=== PATIENT | female | born 1990 | race Two or more races ===

== ENCOUNTER 2018-10-30 11:59 | Outpatient (CLI) | payer OTHER | END 2018-10-30 12:10 | disposition home or self-care (01) | LOC: RAD 11:59 | DX: M54.2 Cervicalgia (principal); M62.838 Other muscle spasm ==

== ENCOUNTER 2019-05-23 07:52 | Outpatient (CLI) | payer OTHER | END 2019-05-23 08:02 | disposition home or self-care (01) | LOC: LAB 07:52 | DX: M25.50 Pain in unspecified joint (principal); R53.81 Other malaise; Z13.6 Encounter for screening for cardiovascular disorders; Z00.00 Encounter for general adult medical examination without abnormal findings ==

== ENCOUNTER 2019-09-20 18:32 | Outpatient (CLI) | payer OTHER | END 2019-09-20 19:26 | disposition home or self-care (01) | LOC: LAB 18:32 | DX: J11.1 Influenza due to unidentified influenza virus with other respiratory manifestations (principal); R10.84 Generalized abdominal pain ==

== ENCOUNTER 2019-12-17 11:28 | Outpatient (CLI) | payer OTHER | END 2019-12-17 16:19 | disposition home or self-care (01) | LOC: SONOGRAMA 11:28 | DX: R42 Dizziness and giddiness (principal) ==

== ENCOUNTER 2019-12-18 07:15 | Outpatient (CLI) | payer OTHER | END 2019-12-18 07:23 | disposition home or self-care (01) | LOC: LAB 07:15 | DX: R42 Dizziness and giddiness (principal); R22.1 Localized swelling, mass and lump, neck; Z00.00 Encounter for general adult medical examination without abnormal findings; Z13.6 Encounter for screening for cardiovascular disorders ==

== ENCOUNTER → 2020-05-02 | Outpatient (CLI) | payer OTHER | END | disposition home or self-care (01) | LOC: MAMO-SONO 08:02 | PROVIDERS: ATTEND Colon & Rectal Surgery | DX: R10.84 Generalized abdominal pain (principal) ==

== ENCOUNTER 2020-07-01 16:02 | Outpatient (CLI) | payer OTHER | END 2020-07-01 16:04 | disposition home or self-care (01) | LOC: PPH VACUNA 16:02 | DX: Z23 Encounter for immunization (principal) ==

== ENCOUNTER → 2020-08-26 | Outpatient (CLI) | payer OTHER | END | disposition home or self-care (01) | LOC: OFIC 805 12:48 | PROVIDERS: ATTEND Otolaryngology | DX: R07.0 Pain in throat (principal); J03.80 Acute tonsillitis due to other specified organisms ==

== ENCOUNTER 2020-09-10 10:09 | Outpatient (CLI) | payer OTHER | END 2020-09-10 10:30 | disposition home or self-care (01) | LOC: OFIC 805 10:09 | PROVIDERS: ATTEND Otolaryngology | DX: J03.80 Acute tonsillitis due to other specified organisms (principal); R07.0 Pain in throat; R23.3 Spontaneous ecchymoses ==

== ENCOUNTER 2020-11-20 15:34 | Outpatient (CLI) | payer OTHER | END 2020-11-20 15:43 | disposition home or self-care (01) | LOC: RAD 15:34 | PROVIDERS: ATTEND Pediatrics | DX: Z02.79 Encounter for issue of other medical certificate (principal) ==

== ENCOUNTER 2021-06-15 08:00 | Outpatient (CLI) | payer OTHER | END 2021-06-15 08:30 | disposition home or self-care (01) | LOC: PPH VACUNA 08:00 | PROVIDERS: ATTEND Emergency Medicine Pediatric Emergency Medicine | DX: Z23 Encounter for immunization (principal) ==

== ENCOUNTER 2022-02-15 09:49 | Emergency (ER) | payer OTHER ==
[~2022-02-15] VITALS: Ht 154.9 cm; Wt 49.9 kg
[2022-02-15] MEDS ORDERED: ANTICONCEPTIVOS (10:13)
[2022-02-15] MEDS ORDERED: CIPRO500 MG PO (14:26)
== END 2022-02-15 15:17 | disposition home or self-care (01) ==
LOC: ER 09:49
DX: N39.0 Urinary tract infection, site not specified (principal); R11.10 Vomiting, unspecified; R53.81 Other malaise; R42 Dizziness and giddiness; Z20.822 Contact with and (suspected) exposure to COVID-19; Z88.0 Allergy status to penicillin; Z91.018 Allergy to other foods

== ENCOUNTER 2022-05-19 10:16 | Outpatient (CLI) | payer OTHER ==
[~2022-05-19 10:16] MED LIST: ANTICONCEPTIVOS; CIPRO500 MG PO
== END 2022-05-19 10:21 | disposition home or self-care (01) ==
LOC: PPH VACUNA 10:16
PROVIDERS: ATTEND Emergency Medicine Pediatric Emergency Medicine
DX: Z23 Encounter for immunization (principal)

== ENCOUNTER 2022-06-22 02:57 | Emergency (ER) | payer OTHER ==
[~2022-06-22] VITALS: Ht 154.9 cm; Wt 50.8 kg
[2022-06-22] MEDS ORDERED: PEPCID AC20 MG PO (07:47)
[2022-06-22] MEDS ORDERED: DICLOFENAC POTA50 MG PO (07:47)
[2022-06-22] MEDS ORDERED: AZITHROMYCIN500 MG PO (07:47)
== END 2022-06-22 07:59 | disposition home or self-care (01) ==
LOC: ER 02:57
DX: A49.3 Mycoplasma infection, unspecified site (principal); J06.9 Acute upper respiratory infection, unspecified; Z20.822 Contact with and (suspected) exposure to COVID-19; Z88.0 Allergy status to penicillin

== ENCOUNTER 2024-07-05 22:55 | Emergency (ER) | payer OTHER ==
[~2024-07-05] VITALS: Ht 154.9 cm; Wt 59.0 kg
[~2024-07-05 22:55] MED LIST changes: +AZITHROMYCIN500 MG PO; +DICLOFENAC POTA50 MG PO; +PEPCID AC20 MG PO
[2024-07-06] MEDS ORDERED: CLINDAMYCIN PHOSPHATE 150 MG/ML (600mg) IM STA (01:07)
[2024-07-06] MEDS ORDERED: HYDROCODONE/CHLORPHEN P-STIREX 5 ML ML PO STA (01:07)
[2024-07-06] MEDS ORDERED: MEDROLPACK PO (15:14)
[2024-07-06] MEDS ORDERED: PEPCID AC20 MG PO (15:14)
[2024-07-06] MEDS ORDERED: MIRALAX510 GM PO (15:14)
[2024-07-06] MEDS ORDERED: ZOFRAN8 MG PO (15:14)
== END 2024-07-06 01:24 | disposition home or self-care (01) ==
LOC: ER 22:57
DX: R53.81 Other malaise (principal); J03.90 Acute tonsillitis, unspecified; Z88.0 Allergy status to penicillin; Z91.018 Allergy to other foods

== ENCOUNTER 2024-07-06 07:25 | Emergency (ER) | payer OTHER ==
[~2024-07-06] VITALS: Ht 157.5 cm; Wt 59.0 kg
[2024-07-06] MEDS ORDERED: RINGERS SOLUTION,LACTATED 500 ML IV STA (07:38)
[2024-07-06] MEDS ORDERED: FAMOtidine 10 MG/ML (4ML VIAL) IV PUSH STA (07:39)
[2024-07-06] MEDS ORDERED: METOCLOPRAMIDE HCL 5 MG/ML VIAL IM STA (07:40)
[2024-07-06] MEDS ORDERED: HYOSCYAMINE SULFATE 0.125 MG TAB.SUBL SL ONE (07:45)
[2024-07-06 08:58] LABS: HEMATOCRIT 39.2 % (36.0-45.00); HEMOGLOBIN 12.9 g/dL (12.0-15.00); MEAN CELL VOLUME 80.3 fL (80.00-100.00); MEAN CORPUSCULAR HEMOGLOBIN 26.4 pg (27.00-32.0); MEAN CORPUSCULAR HGB CONC 32.9 g/dl (32.0-36.0); PLATELET COUNT 252 K/uL (150-450); RED BLOOD COUNT 4.88 M/uL (4.00-6.00); RED CELL DISTRIBUTION WIDTH 13.5 % (11.5-14.5)
[2024-07-06 09:24] LABS: ALBUMIN 3.6 gm/dL (3.4-5.0); BILIRUBIN TOTAL 0.38 mg/dL (0.3-1.2); CALCIUM 8.7 mg/dL (8.5-10.1); CREATININE SERUM 0.73 mg/dL (0.55-1.02); GFR 92.99; POTASSIUM 3.1 mEq/L (3.5-5.1); TOTAL PROTEIN 7.6 gm/dL (6.4-8.2)
[2024-07-06 09:26] LABS: URINE APPEARANCE Clear; URINE BILIRRUBIN Negative (NEGATIVE); URINE BLOOD Trace; URINE COLOR Yellow; URINE GLUCOSE Negative (NEGATIVE); URINE KETONE Negative (NEGATIVE); URINE LEUKOCYTE Negative; URINE NITRATE Negative; URINE PROTEIN Negative (NEGATIVE); URINE UROBILINOGEN 0.2 E.U./dl
[2024-07-06 09:30] LABS: URINE CAST 1.67 uL (0.0-1.40); URINE EPITHELIAL CELLS 41.7 uL (0.0-38.8); URINE RBC 9.7 uL (0.0-20.8); URINE WBC 74.3 uL (0.0-23.2)
[2024-07-06] MEDS ORDERED: LACTULOSE 20 G/30 ML BLIST.PACK PO ONE ×2 (11:30)
[2024-07-06] MEDS ORDERED: MAGNESIUM HYDROXIDE 400 MG/5 ML ML PO ONE (11:30)
[2024-07-06] MEDS ORDERED: MINERAL OIL 30 ML BLIST.PACK PO ONE (11:30)
[2024-07-06] MEDS ORDERED: ONDANSETRON HCL 2 MG/ML VIAL IV ONE (14:45)
[2024-07-06] MEDS ORDERED: PEPCID AC20 MG PO (15:14)
[2024-07-06] MEDS ORDERED: ZOFRAN8 MG PO (15:14)
[2024-07-06] MEDS ORDERED: MIRALAX510 GM PO (15:14)
[2024-07-06] MEDS ORDERED: MEDROLPACK PO (15:14)
== END 2024-07-06 15:19 | disposition home or self-care (01) ==
LOC: ER 07:27
DX: R11.10 Vomiting, unspecified (principal); Z20.822 Contact with and (suspected) exposure to COVID-19; Z88.0 Allergy status to penicillin; Z91.018 Allergy to other foods